=== PATIENT | female | born 1985 | race African-American/Black ===

== ENCOUNTER 2019-02-28 14:22 | Emergency (ER) | payer MEDICAID ==
[~2019-02-28] VITALS: Ht 167.6 cm; Wt 51.0 kg
[2019-02-28 16:23] VITALS: BP 148/91
== END 2019-02-28 17:27 | disposition home or self-care (01) ==
LOC: ER 14:22
DX: S00.86XA Insect bite (nonvenomous) of other part of head, initial encounter (principal); F17.200 Nicotine dependence, unspecified, uncomplicated; F12.10 Cannabis abuse, uncomplicated; D64.9 Anemia, unspecified; W57.XXXA Bitten or stung by nonvenomous insect and other nonvenomous arthropods, initial encounter; Y93.89 Activity, other specified; Y92.89 Other specified places as the place of occurrence of the external cause; Y99.8 Other external cause status
CPT/HCPCS: 99282

== ENCOUNTER 2019-04-04 08:54 | Emergency (ER) | payer MEDICAID ==
[~2019-04-04] VITALS: Ht 167.6 cm; Wt 49.0 kg
[2019-04-04 09:30] VITALS: BP 133/93
== END 2019-04-04 13:04 | disposition left against medical advice (07) ==
LOC: ER 09:44
DX: Z53.21 Procedure and treatment not carried out due to patient leaving prior to being seen by health care provider (principal); F17.210 Nicotine dependence, cigarettes, uncomplicated; D64.9 Anemia, unspecified